=== PATIENT | female | born 1945 | race Caucasian/White ===

== ENCOUNTER 2020-01-29 14:45 | Outpatient (CLI) | payer MEDICARE, BC | END 2020-01-29 23:59 | disposition home or self-care (01) | LOC: LAB.N 14:45 | PROVIDERS: ATTEND Physician Assistant Medical | DX: N30.00 Acute cystitis without hematuria (principal) | CPT/HCPCS: 87086; 87181 ==

== ENCOUNTER 2020-05-28 14:44 | Outpatient (CLI) | payer MEDICARE, BC ==
--- NOTE | 2020-05-29 11:13 | Mammography Report ---
BILATERAL DIGITAL SCREENING MAMMOGRAM 3D/2D: 05/28/2020 CLINICAL: Routine screening. Comparison is made to exams dated: 07/05/2018 mammogram, 06/17/2015 mammogram, and 10/06/2011 mammogram - [facility]. There are scattered fibroglandular elements in both breasts. No significant masses, calcifications, or other findings are seen in either breast. There has been no significant interval change. IMPRESSION: NEGATIVE There is no mammographic evidence of malignancy. A 1 year screening mammogram is recommended. This exam was interpreted at Station ID: [id number]. NOTE: For mammograms, a report in lay terms will be sent to the patient. Approximately 15% of breast malignancies will not be visualized mammographically. In the management of a palpable breast mass, a negative mammogram must not discourage biopsy of a clinically suspicious lesion. Electronically Signed By: Trevor Jones M.D. ar/penrad:05/28/2020 15:37:56 ACR BI-RADS Category 1: Negative 3341F PARENCHYMAL PATTERN: (A) - The breast(s) demonstrate(s) scattered fibroglandular densities. BI-RADS CATEGORY: (1) - 1 RECOMMENDATION: (ANNUAL) - Recommend routine annual screening mammography. [id number] 1 year screening LATERALITY: (B)
== END 2020-05-28 14:45 | disposition home or self-care (01) ==
LOC: DI 14:44
PROVIDERS: ATTEND Registered Nurse
DX: Z12.31 Encounter for screening mammogram for malignant neoplasm of breast (principal)

== ENCOUNTER 2020-05-28 14:48 | Outpatient (CLI) | payer MEDICARE, BC ==
--- NOTE | 2020-05-28 16:24 | DEXA Report ---
PROCEDURE: Dexa Spine and/or Hip INDICATIONS: POSTMENOPAUSAL TECHNIQUE: Dual energy x-ray absorptiometry (DXA) was performed on a [employer] System. Regions measur ed are the AP Spine, femoral neck, and if needed forearm. COMPARISON: None. FINDINGS: Lumbar Spine: Bone Mineral Density 1.174 g/cm/cm,T score -0.1, Left Femoral Neck: Bone Mineral Density 0.835 g/cm/cm, T score -1.4, (T score greater or equal to -1.0: NORMAL) (T score from -1.1 to -2.4: OSTEOPENIA) (T score less than or equal to -2.5 to: OSTEOPOROSIS) Impression: Osteopenia Patients with diagnosis of osteoporosis or osteopenia should have regular bone mineral density assess ment. For those eligible for Medicare, routine testing is allowed once every 2 years. Testing frequ ency can be increased for patients who have rapidly progressing disease or for those who are receivin g medical therapy to restore bone mass. Reviewed by: Germain Herrera MD on 05/28/2020 4:23 PM PDT Approved by: Germain Herrera MD on 05/28/2020 4:23 PM PDT Station ID: [id number]
== END 2020-05-28 14:49 | disposition home or self-care (01) ==
LOC: DI 14:48
PROVIDERS: ATTEND Registered Nurse
DX: M85.88 Other specified disorders of bone density and structure, other site (principal)

== ENCOUNTER 2020-06-11 07:00 | Outpatient (CLI) | payer MEDICARE, BC ==
--- NOTE | 2020-06-11 16:20 | XRAY Report ---
PROCEDURE: Wrist 3 View RT INDICATIONS: FOOSH INJURY, R WRIST TECHNIQUE: 3 views of the wrist were acquired. COMPARISON: None. FINDINGS: Bones: No fractures or dislocations. No suspicious bony lesions. Scaphoid view: No trauma scaphoid is found. Soft tissues: No suspicious soft tissue calcifications. IMPRESSION: Mild osteoarthritic change at the base of the first metacarpal and at the radiocarpal articulations. A small focus of dystrophic calcification is seen near the styloid process of the distal radius. No a cute disease. Reviewed by: Bradley Sanchez MD on 06/11/2020 4:19 PM PDT Approved by: Bradley Sanchez MD on 06/11/2020 4:19 PM PDT Station ID: [id number]
--- NOTE | 2020-06-11 16:21 | XRAY Report ---
PROCEDURE: Finger(s) RT INDICATIONS: FOOSH INJURY, R MIDDLE FINGER TECHNIQUE: AP hand, 3 views of the third finger(s) acquired. COMPARISON: None. FINDINGS: Bones: No fractures or dislocations. No suspicious bony lesions. Soft tissues: No suspicious soft tissue calcifications. 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 No acute trauma found. Reviewed by: Bradley Sanchez MD on 06/11/2020 4:20 PM PDT Approved by: Bradley Sanchez MD on 06/11/2020 4:20 PM PDT Station ID: [id number]
== END 2020-06-11 23:59 | disposition home or self-care (01) ==
LOC: DI.N 07:00
PROVIDERS: ATTEND Physician Assistant Medical
DX: M19.031 Primary osteoarthritis, right wrist (principal); M19.041 Primary osteoarthritis, right hand; M18.11 Unilateral primary osteoarthritis of first carpometacarpal joint, right hand

== ENCOUNTER 2020-08-18 12:58 | Outpatient (CLI) | payer MEDICARE, BC ==
--- NOTE | 2020-08-18 15:21 | XRAY Report ---
PROCEDURE: Ankle 3 View RT INDICATIONS: R ANKLE PX TECHNIQUE: 3 views of the ankle were acquired. COMPARISON: None FINDINGS: Bones: Post surgical changes compatible with ORIF of lateral and medial malleoli fractures. Fracture s of the odontoid anatomic alignment. Mild tibiotalar joint osteoarthritis. Orthopedic hardware is intact. No lucencies identified at the bone hardware interface. No acute fract ures or dislocations. Ankle mortise is normally aligned. No suspicious bony lesions. Soft tissues: No tibiotalar joint effusion. Achilles tendon appears normal. IMPRESSION: 1. Status post ORIF of distal tibia and fibular fractures. 2. No acute fracture. No acute osseous lesion. If there persistent symptoms or continued clinical con cern for pathology, then repeat plain film radiographs (7-10 days) or advanced imaging (CT, MR, bone scan) should be considered for further evaluation. Reviewed by: Makayla Farrell MD, PhD on 08/18/2020 3:19 PM PDT Approved by: Makayla Farrell MD, PhD on 08/18/2020 3:19 PM PDT Station ID: [id number]
--- NOTE | 2020-08-18 16:09 | XRAY Report ---
PROCEDURE: Lumbar Spine 2 View INDICATIONS: LOW BACK PX TECHNIQUE: 3 views of the lumbar spine were acquired. COMPARISON: None. FINDINGS: Bones: 5 [id number]-[id number] vertebrae are present. There is normal bony alignment. No vertebral body compression fractures. No suspicious bony lesions. Moderate dextrocurvature centered at L2. Lower l umbar facet arthropathy. Multilevel degenerative disc space loss. Soft tissues: Overlying bowel gas pattern is normal. No suspicious soft tissue calcifications. IMPRESSION: Scoliotic curvature, degenerative change. No evidence acute bony abnormality of the lumb ar spine. If clinical suspicion and/or symptoms persist, further assessment with repeat plain films or advanced imaging (e.g., CT, MRI, or bone scan) may be helpful for further assessment. Reviewed by: Oc Israel MD on 08/18/2020 4:08 PM PDT Approved by: Oc Israel MD on 08/18/2020 4:08 PM PDT Station ID: [id number]
--- NOTE | 2020-08-18 17:24 | XRAY Report ---
PROCEDURE: Pelvis 1 View INDICATIONS: HIP PX TECHNIQUE: Single AP view of pelvis was obtained COMPARISON: None. FINDINGS: Normal bone mineralization present. Degenerative change lower lumbar spine associated with convex rig ht lumbar scoliosis. No lytic or blastic lesions present. Pelvic phleboliths noted. IMPRESSION: Degenerative changes without fracture or dislocation. Reviewed by: Gonzalez Brady MD on 08/18/2020 4:23 PM AKKATELYN Approved by: Gonzalez Brady MD on 08/18/2020 4:23 PM AKDT Station ID: [id number]
== END 2020-08-18 23:59 | disposition home or self-care (01) ==
LOC: DI.N 12:58
PROVIDERS: ATTEND Physician Assistant Medical
DX: M54.5 Low back pain (principal); M25.571 Pain in right ankle and joints of right foot; S82.841D Displaced bimalleolar fracture of right lower leg, subsequent encounter for closed fracture with routine healing; M25.551 Pain in right hip; M53.3 Sacrococcygeal disorders, not elsewhere classified; M47.816 Spondylosis without myelopathy or radiculopathy, lumbar region

== ENCOUNTER 2020-12-15 09:04 | Outpatient (CLI) | payer MEDICARE, BC ==
--- NOTE | 2020-12-15 15:43 | MRI Report ---
PROCEDURE: Ankle RT W/O INDICATIONS: PAIN IN RIGHT ANKLE AND FOOT JOINTS TECHNIQUE: Noncontrast sagittal T1 spin echo and T2 fast spin echo with fat saturation, axial proton density fas t spin echo and T2 fast spin echo with fat saturation, coronal T1 spin echo and T2 fast spin echo wit h fat saturation through the ankle/hindfoot. COMPARISON: Ankle radiograph dated 08/18/2020. FINDINGS: Image quality: Diagnostic. Susceptibility artifacts from ankle fixation hardware are noted. Bones and joints: Evaluation of ankle osseous structures are limited due to presence of internal fixa tion hardware in distal fibular shaft and medial malleolus. No obvious marrow edema is seen. No defin ite osteochondral injury of talar dome. No dislocation. There is no significant joint effusion. Osteo arthritic changes in midfoot and hindfoot joints are seen. No suspicious intraosseous lesion. Medial structures: The posterior tibialis is mildly thickened at the level of distal talus/talonavic ular joint suggestive of tendinosis. The flexor digitorum longus, and flexor hallucis longus tendons are intact. The posterior tibial neurovascular bundle appears normal within the tarsal tunnel, witho ut extrinsic mass effect. The deltoid ligament and spring ligament complex are grossly intact. Lateral structures: The anterior talofibular, calcaneofibular, and posterior talofibular ligaments a ppear grossly intact. More superiorly, the anterior and posterior tibiofibular ligaments are not vis ualized due to significant susceptibility artifacts. The tibiofibular syndesmosis is normal in width at 2 mm or less. The peroneus longus and brevis tendons demonstrate normal location and morphology. Adjacent bony peroneal tubercle and retrotrochlear prominence are normal in size. The sinus tarsi d emonstrates normal fatty signal, without edema, fibrosis, or cyst formation. Visualized sinus tarsi components (cervical ligament, interosseous talocalcaneal ligament, roots of the inferior extensor re tinaculum) appear normal. Anterior structures: The tibialis anterior, extensor hallucis longus, and extensor digitorum longus tendons appear intact. Posterior and plantar structures: Achilles tendon is intact. Medial and lateral bands of the planta r fascia are of normal thickness. No abductor digiti quinti muscle atrophy to suggest Sanchez neuropa thy. IMPRESSION: 1. Limited study due to significant susceptibility artifacts from ankle fixation hardware. 2. Prior internal fixation of medial malleolus and distal fibular shaft. No gross marrow edema. No ac point lay ira fracture or dislocation. Mild midfoot and hindfoot joint osteoarthritis. No gross osteochondral i njuries of the talar dome. 3. Suggestion of tendinosis involving posterior tibialis tendon at the level of distal talus/talonavi cular joint. Rest of the ankle tendons are grossly intact. 4. Medial and lateral ankle ligaments are grossly intact to the extent visualized. Reviewed by: Edvin Ardon MD on 12/15/2020 3:42 PM [facility] Approved by: Edvin Ardon MD on 12/15/2020 3:42 PM PST Station ID: [id number]
--- NOTE | 2020-12-15 16:25 | MRI Report ---
PROCEDURE: Foot RT W/O INDICATIONS: PAIN IN RIGHT ANKLE AND FOOT JOINTS TECHNIQUE: Noncontrast coronal and sagittal T1 spin echo and STIR; axial T1 spin echo and T2 fast spin echo with fat saturation through the right foot. COMPARISON: None. FINDINGS: Image quality: Excellent. Bones: Mild first MTP joint and first through fifth interphalangeal joint osteoarthritic changes are seen with joint space narrowing and subchondral sclerosis. No marrow edema. No fracture or dislocatio n. No metatarsal stress fractures. No suspicious intraosseous lesion. Soft tissues: The scanned muscles demonstrate normal overall bulk and internal signal. Subcutaneous tissues appear normal as well. No soft tissue masses are present. Extensor and flexor tendons are grossly intact. Lisfranc ligament and joint is intact. IMPRESSION: 1. Mild forefoot and midfoot joint osteoarthritis as above. No marrow edema. No fracture or dislocati on. No evidence of metatarsal stress fractures. 2. Visualized midfoot and forefoot tendons and ligaments are grossly intact. No gross soft tissue abn ormality. Reviewed by: Edvin Ardon MD on 12/15/2020 4:24 PM PST Approved by: Edvin Ardon MD on 12/15/2020 4:24 PM PST Station ID: [id number]
== END 2020-12-15 09:05 | disposition home or self-care (01) ==
LOC: DI 09:04
PROVIDERS: ATTEND Family Medicine
DX: M19.071 Primary osteoarthritis, right ankle and foot (principal)

== ENCOUNTER 2023-04-05 14:46 | Outpatient (CLI) | payer MEDICARE, BC ==
--- NOTE | 2023-04-05 20:22 | XRAY Report ---
PROCEDURE: Cervical Spine 4-5V INDICATIONS: NECK PAIN TECHNIQUE: 7 views of the cervical spine were acquired. COMPARISON: None. FINDINGS: Bones: Vertebral body height and alignment is maintained. Normal bone mineralization and cranioverte bral relationships. No fracture or traumatic malalignment. Disc space narrowing and hypertrophic fac et joints noted in the lower cervical spine Flexion and extension imaging shows no evidence of instability. Oblique images show patent foramina on the left. Evaluation the right foraminal is obscured by patien t positioning Soft tissues: Prevertebral soft tissues are normal in thickness. IMPRESSION: Multilevel degenerative disc disease and arthropathy particularly in the lower cervical spine Reviewed by: Gonzalez Brady MD on 04/05/2023 7:21 PM AKST Approved by: Gonzalez Brady MD on 04/05/2023 7:21 PM AK Station ID: [id number]
== END 2023-04-05 14:47 | disposition home or self-care (01) ==
LOC: DI 14:46
PROVIDERS: ATTEND Internal Medicine
DX: M50.30 Other cervical disc degeneration, unspecified cervical region (principal); M47.812 Spondylosis without myelopathy or radiculopathy, cervical region

== ENCOUNTER 2023-12-02 19:07 | Inpatient (IN) ==
--- NOTE | 2023-12-02 19:41 | ED Physician Documentation ---
PD HPI ABD PAIN Stated complaint Stated Complaint: NOT EATING Chief complaint Chief Complaint: General History obtained from History obtained from: Patient History of Present Illness Timing - onset: How many days ago (3-4) Timing - duration: Days (3-4) Timing - details: Gradual onset and Still present Quality: Cramping, Aching and Pain Location: RUQ, Epigastric and RLQ Radiation: No Chest Meds/Allgy Home Medications Ambulatory Orders Medication Instructions Recorded Confirmed bupropion HCl 300 mg 24 hr tablet, 300 mg PO DAILY 12/02/23 12/02/23 extended release levothyroxine 112 mcg tablet 112 mcg PO DAILY 12/02/23 12/02/23 lisinopril 10 mg tablet 10 mg PO DAILY 12/02/23 12/02/23 Allergies Allergies Allergy/AdvReac Type Severity Reaction Status Date / Time Penicillins Allergy Hives Verified 12/02/23 19:23 [facility] Social History Social History Smoking Status: Former smoker Second hand tobacco smoke exposure: No Do you dip or chew tobacco?: No Do you vape?: No Relationship: Level: Independent Do you feel safe in your home environment?: Yes Suffered physical, verbal, emotional, or financial abuse?: No POLST Patient has POLST: No Exam Constitutional normal general appearance, distress noted (severe) (appears very uncomfortable in pain mid to right abd. ) and average body habitus HENMT normocephalic and oropharynx normal Lymph no lymphadenopathy noted Respiratory breath sounds equal bilaterally and normal respiratory effort Cardiovascular normal heart rate noted and regular rhythm noted Gastrointestinal tender to palpation (severe) and other (She has generalized abdominal tenderness with preponderance in the mid to right abdomen with general percussion and rebound tenderness but marked percussion rebound in the right mid and lower abdomen. Bowel sounds are hypoactive.) Genitourinary no CVA tenderness Extremities normal to palpation Results Vitals Vitals: Vital Signs - 24 hr 12/02/23 19:19 12/02/23 19:36 12/02/23 20:05 Temperature 36.7 C Temperature Source Tympanic Pulse Rate 88 77 78 Respiratory Rate 16 Blood Pressure 126/86 144/77 H 138/72 H O2 Saturation 97 95 O2 Source Room air Room air If not protocol: Oxygen Flow, liters/minute Pain Intensity 9 3 3 12/02/23 20:17 12/02/23 22:06 12/02/23 22:18 Temperature Temperature Source Pulse Rate 75 Respiratory Rate Blood Pressure 142/61 H O2 Saturation 94 O2 Source Nasal cannula If not protocol: Oxygen Flow, liters/minute 1 Pain Intensity 8 1 1 12/02/23 23:26 12/02/23 23:28 12/03/23 00:09 Temperature Temperature Source Pulse Rate 73 Respiratory Rate Blood Pressure 95/56 L O2 Saturation 94 O2 Source Nasal cannula If not protocol: Oxygen Flow, liters/minute Pain Intensity 2 4 12/03/23 01:08 12/03/23 01:08 12/03/23 02:00 Temperature Temperature Source Pulse Rate 68 Respiratory Rate Blood Pressure 106/52 L O2 Saturation 96 O2 Source If not protocol: Oxygen Flow, liters/minute Pain Intensity 3 3 Oxygen O2 Source Nasal cannula Labs Labs: Laboratory Tests 12/02/23 12/02/23 20:05 20:16 WBC 8.6 RBC 4.65 Hgb 15.0 Hct 46.1 MCV 99.1 H MCH 32.3 H MCHC 32.5 RDW 12.3 Plt Count 213 MPV 10.1 Neut # (Auto) 6.1 Lymph # (Auto) 1.6 [place] # (Auto) 0.8 Eos # (Auto) 0.1 Baso # (Auto) 0.0 Absolute Nucleated RBC 0.00 Nucleated RBC % 0.0 Sodium 131 L Potassium 4.5 Chloride 96 L Carbon Dioxide 27 Anion Gap 8.0 BUN 15 Creatinine 1.2 Estimated GFR (MDRD) 43 L Glucose 109 H Calcium 9.5 Magnesium 1.6 L Total Bilirubin 1.1 H AST 20 ALT 13 Alkaline Phosphatase 78 Total Protein 6.9 Albumin 4.1 Globulin 2.8 Albumin/Globulin Ratio 1.5 Lipase 16 Urine Color DARK YELLOW Urine Clarity CLEAR Urine pH 6.0 Ur Specific Hines 1.020 Urine Protein NEGATIVE Urine Glucose (UA) NEGATIVE Urine Ketones NEGATIVE Urine Occult Blood NEGATIVE Urine Nitrite NEGATIVE Urine Bilirubin SMALL H Urine Urobilinogen 0.2 (NORMAL) Ur Leukocyte Esterase NEGATIVE Ur Microscopic Review NOT INDICATED Urine Culture Comments NOT INDICATED PD Medical Decision Making ED course Complexity details: reviewed results, considered differential (Gallbladder is out so not that. Otherwise consider right sided diverticulitis, enteritis, dilated common bile duct, appendicitis. Given generalized peritoneal findings, concern for perforation.), d/w patient and d/w design consultant Reviewed Lab Results: The patient has normal white count. Afebrile. She has normal electrolytes and renal function. Bilirubin is minimally elevated at 1.1 with other LFTs normal. Lipase is normal. She does have marked tenderness so CT scan was done. This showed diffuse wall inflammation of the ileum. There is some stranding noted around the base of the appendix but air-filled and contrast filled otherwise. Given the degree of tenderness along with the ileitis and inability to eat or drink without pain and also some ascites noted around the liver, presuming reactive, I feel the patient is not a candidate for going home and needs to be hospitalized. I talked with the hospitalist to ask for surgery consult due to the stranding at the base of the appendix. I talked with Dr. Whitehead who is on for surgery who said with those findings that it would not be appendicitis given the feeling and air in it. I did call the hospitalist back. It took a little bit of time as initially a different hospitalist called back on the general request. Subsequently placed another request and got the first hospitalist back. He agreed to admit the patient for further care. Discharge Plan Discharge Patient Disposition: 66 [facility] DC/Xfer Condition: Stable Clinical Impression: Ileitis, Abdominal pain, Intractable abdominal pain Interventions: ED Admission Assessment Last Done: 12/03/23 02:58
[2023-12-02 20:12] LABS: BASOPHILS % (AUTO) 0.5 %; EOSINOPHILS # (AUTO) 0.1 10^3/uL (0.0-0.7); EOSINOPHILS % (AUTO) 0.7 %; HCT - HEMATOCRIT 46.1 % (37.0-47.0); LYMPHOCYTES # (AUTO) 1.6 10^3/uL (1.5-3.5); LYMPHOCYTES % (AUTO) 18.9 %; MEAN CORPUSCULAR HEMOGLOBIN 32.3 pg (27.0-31.0); MEAN CORPUSCULAR HGB CONC 32.5 g/dL (32.0-36.0); MEAN CORPUSCULAR VOLUME 99.1 fL (81.0-99.0); MEAN PLATELET VOLUME 10.1 fL (7.9-10.8); MONOCYTES # (AUTO) 0.8 10^3/uL (0.0-1.0); NEUTROPHILS # (AUTO) 6.1 10^3/uL (1.5-6.6); NEUTROPHILS % (AUTO) 70.4 %; PLT - PLATELET COUNT 213 10^3/uL (130-450); RED BLOOD COUNT 4.65 10^6/uL (4.20-5.40); RED CELL DISTRIBUTION WIDTH 12.3 % (12.0-15.0); WHITE BLOOD COUNT 8.6 x10^3/uL (4.8-10.8)
[2023-12-02] MEDS: ONDANSETRON 4 MG/2 ML VIAL IVP STA (20:16)
[2023-12-02] MEDS: HYDROmorphone 1 MG/ML CARPUJECT IVP STA (20:17)
[2023-12-02] MEDS: SODIUM CHLORIDE 0.9% 1,000 ML IV STA ×2 (20:17→23:29)
[2023-12-02 20:24] LABS: BILIRUBIN,URINE SMALL (NEGATIVE); GLUCOSE, URINE (UA) NEGATIVE (NEGATIVE); KETONES,URINE (UA) NEGATIVE (NEGATIVE); LEUKOCYTE ESTERASE, URINE NEGATIVE (NEGATIVE); NITRITE,URINE NEGATIVE (NEGATIVE); OCCULT BLOOD,URINE NEGATIVE (NEGATIVE); PROTEIN,URINE NEGATIVE (NEGATIVE); UROBILINOGEN,URINE 0.2 (NORMAL) E.U./dL (NORMAL)
[2023-12-02 20:27] LABS: MAGNESIUM 1.6 mg/dL (1.7-2.3)
[2023-12-02 20:29] LABS: ALBUMIN 4.1 g/dL (3.2-5.5); ALBUMIN/GLOBULIN RATIO 1.5 (1.0-2.2); BILIRUBIN,TOTAL 1.1 mg/dL (0.2-1.0); CALCIUM 9.5 mg/dL (8.5-10.3); CREATININE 1.2 mg/dL (0.6-1.3); POTASSIUM 4.5 mmol/L (3.5-4.5); TOTAL PROTEIN 6.9 g/dL (6.4-8.9)
[2023-12-02 20:29] LABS: CLARITY,URINE CLEAR (CLEAR)
[2023-12-02] MEDS ORDERED: iohexoL-300 100 ML VIAL ONE (21:23)
[2023-12-02] MEDS: iohexoL-300 100 ML VIAL IVP ONE (22:11)
--- NOTE | 2023-12-02 22:31 | CT Report ---
PROCEDURE: CT Abdomen/Pelvis W INDICATIONS: Abdominal pain, acute, right upper. prior CCY CONTRAST: 100 ML OMNI 300 TECHNIQUE: After the administration of intravenous contrast, a CT scan of the abdomen and pelvis was performed. Images were recorded and evaluated at appropriate window settings. Reformats: coronal and sagittal. F or radiation dose reduction, the following was used: automated exposure control, adjustment of mA and /or kV according to patient size. COMPARISON: None. FINDINGS: Image quality: Diagnostic. Lower chest: Bibasilar subsegmental atelectasis. Liver: No solid mass. Gallbladder: Surgically absent. Biliary tree: No intrahepatic or extrahepatic dilation, accounting for age. Spleen: No splenomegaly. Subcentimeter hypodensities, too small to accurately characterize. Pancreas: No pancreatic ductal dilation. Adrenals: No adrenal nodule. Kidneys and ureters: No hydronephrosis. No renal cystic lesion which requires follow up. No solid mas s. Renal cortical scarring. Stomach, bowel and peritoneum: No gastric or small bowel dilation. Thickened loops of ileum with surr ounding fat stranding. Wall thickening and stranding at the base of the appendix, the remainder of th e appendix is normal in caliber and filled with contrast few foci of gas. Small amount of ascites sarita und the liver and spleen and throughout the abdomen. Diverticulosis without evidence of acute divert iculitis. Lymph nodes: No central or retroperitoneal adenopathy. Vessels: No infrarenal aortic aneurysm. Atherosclerotic vascular calcifications. Patent portal vein. PELVIS Reproductive organs: Unremarkable. Bladder: No abnormal wall thickening, accounting for underdistention. Pelvic lymph nodes: No pelvic adenopathy by size criteria. Bones: No aggressive osseous abnormality. Degenerative changes of the spine. Dextroscoliotic curvatur e. Decreased osseous mineralization. Other: No significant ventral or inguinal hernia. IMPRESSION: 1.Thickened loops of ileum with surrounding fat stranding, concerning for enteritis. 2.Wall thickening and stranding at the base of the appendix. The rest of the appendix is normal in ca liber and filled with contrast and small amounts of gas. 3.Small volume ascites and mild mesenteric edema. Findings may be reactive. Reviewed by: Mack Palma MD on 12/02/2023 10:30 PM PDT Approved by: Mack Palma MD on 12/02/2023 10:30 PM PDT Station ID: [id number]
[2023-12-02] MEDS: PANTOPRAZOLE 40 MG VIAL IVP STA (22:57)
[2023-12-02] MEDS: KETOROLAC 15 MG/ML VIAL IVP STA (23:26)
[2023-12-02] MEDS: HYDROmorphone 0.5 MG/0.5 ML SYRINGE IVP STA (23:28)
[2023-12-02] MEDS: cefTRIAXone 1 GM VIAL IVP STA (23:48)
[2023-12-02] MEDS: metroNIDAZOLE 500 MG/100 ML 500 MG/100 ML BAG IV ONE (23:49)
[2023-12-03] MEDS: ONDANSETRON 4 MG/2 ML VIAL IVP STA (01:27)
[2023-12-03] MEDS ORDERED: SODIUM CHLORIDE FLUSH 0.9% 10 ML SYRINGE IVP PRN (02:23)
[2023-12-03] MEDS ORDERED: MORPHINE 2 MG/ML CARPUJECT IVP PRN (02:23)
--- NOTE | 2023-12-03 02:51 | HISTORY & PHYSICAL EXAMINATION ---
Chief Complaint Chief Complaint Chief Complaint: abdominal pain History of Present Illness History of Present Illness HPI Comment/Other: 78 y old female with PMH HTN, hypothyroidism presented to ER due to abdominal pain, nausea, diarrhea for 2-3 days. Denies fever, MCKEON, chest pain, SOB, symptoms On presentation, pt was afebrile Labs showed normal WBC CT abdomen/ pelvis showed ileitis . As per ER physician ( Dr Garcia), he discussed the case and CT findings with surgeron roofing contractor (Dr Whitehead) who did not think that patient have acute appendicitis and recommedned to treat ileitis/colitis In ER, pt was given iv rocephin and flagyl Pt is admitted due to acute gastroenteritis, abdomninal pain, diarrhea In Er Review of Systems Status of ROS: 10 or more systems reviewed and unremarkable except as noted in history and below PFSH Social History Social History Relationship: Do you feel safe in your home environment?: Yes Suffered physical, verbal, emotional, or financial abuse?: No POLST Patient has POLST: No Meds/Allgy Home Medications Ambulatory Orders Medication Instructions Recorded Confirmed bupropion HCl 300 mg 24 hr tablet, 300 mg PO DAILY 12/02/23 12/02/23 extended release levothyroxine 112 mcg tablet 112 mcg PO DAILY 12/02/23 12/02/23 lisinopril 10 mg tablet 10 mg PO DAILY 12/02/23 12/02/23 Allergies Allergies Allergy/AdvReac Type Severity Reaction Status Date / Time Penicillins Allergy Hives Verified 12/02/23 19:23 Exam Constitutional normal general appearance HENMT normocephalic Eyes PERRL Neck/C-Spine visual inspection normal Lymph no lymphadenopathy noted Chest inspection of chest normal Respiratory breath sounds equal bilaterally Cardiovascular normal heart rate noted Gastrointestinal mild diffuse tenderness Extremities normal to inspection Neurology no focal motor deficit noted Skin no rash Conclusion/Plan Problem List (1) Ileitis: Plan: A: Acute gastroenteritis Abdominal pain Diarrhea HTN Hypothyroidism Plan: Admit to med surg Clear liquid diet Start NS@ 100 cc/h Start levaquin and flagyl iv Zofran iv prn Morphine iv prn Cont home meds DVT prophylaxic: SCD Full code Pt is admitted as inpatient as more than 2 midnight stay is expectred Lab Results 12/02/23 20:05 12/02/23 20:05
[2023-12-03] MEDS ORDERED: metroNIDAZOLE 500 MG/100 ML 500 MG/100 ML BAG IV SCH (03:00)
[2023-12-03] MEDS: levoFLOXacin 750 MG/150 ML 750 MG/150 ML BAG IV SCH (03:12)
[2023-12-03] MEDS: SODIUM CHLORIDE 0.9% 1,000 ML IV SCH (03:12)
[2023-12-03] MEDS: ONDANSETRON 4 MG/2 ML VIAL IVP PRN (04:36)
--- NOTE | 2023-12-03 08:17 | PHARMACY PROGRESS NOTE ---
Best Possible Medication History Admit Date and Time: 12/03/23 [id number] Processed by: Nursing Medications reviewed in ED?: Yes Medication History completed: Yes Secondary Source(s): Pharmacy records and Insurance records [facility] Statement: As the person ultimately responsible for medication therapy, providers are able to order a medication from an existing home medication list in [facility] via the "Reconcile Routine" prior to Confirmation of that medication by java support engineer. Such practice is discouraged except when the physician, in their clinical judgment, deems that a medical need exists for a medication without regard to previous use.
[2023-12-03] MEDS: metroNIDAZOLE 500 MG/100 ML 500 MG/100 ML BAG IV SCH (08:47)
[2023-12-03] MEDS: ENOXAPARIN 40 MG/0.4 ML SYRINGE SUBQ SCH (08:47)
[2023-12-03] MEDS: SODIUM CHLORIDE FLUSH 0.9% 10 ML SYRINGE IVP SCH (08:48)
[2023-12-03 09:00] VITALS: O2SAT 96
--- NOTE | 2023-12-03 09:19 | Discharge Summary ---
Discharge Summary Admit Date: 12/03/23 Discharge Date: 12/03/23 Discharging Provider: Vishnu Rodriguez NP Primary Care Provider: Andrea Fountain Code Status: Attempt Resuscitation DIAGNOSES Admission Diagnoses: Acute gastroenteritis Abdominal pain Diarrhea Hypertension Hypothyroid Discharge Diagnoses with Status of Each Condition: Acute gastroenteritisactive Abdominal painresolved Diarrhearesolved Hypertensionchronic Hypothyroidchronic HPI History of Present Illness: 78-year-old female with history of hypertension, hypothyroidWho presented to the ER with a 2 to 3-day history of nausea, vomiting, abdominal pain, inability to eat. She denied fever, chills. In the ER, workup was significant for ileitis noted on CT scan. On-call surgeon was consulted with the results of CT scan, and she recommended no surgical intervention, but did recommend antibiotics and bowel rest Hospitalist was contacted for admission HOSPITAL COURSE Hospital Course: Patient received IV antibiotics and IVF overnight with improvement in symptoms. Afebrile, no lab abnormalities overnight. Stable for discharge today ALLERGIES Allergies Allergy/AdvReac Type Severity Reaction Status Date / Time Penicillins Allergy Hives Verified 12/02/23 19:23 MEDICATIONS Ambulatory Orders Medication Instructions Recorded Confirmed bupropion HCl 300 mg 24 hr tablet, 300 mg PO DAILY 12/02/23 12/02/23 extended release levothyroxine 112 mcg tablet 112 mcg PO DAILY 12/02/23 12/02/23 lisinopril 10 mg tablet 10 mg PO DAILY 12/02/23 12/02/23 metronidazole 500 mg tablet 500 mg PO TID 7 days #21 tabs 12/03/23 PHYSICAL EXAM AT DISCHARGE General Appearance: positive No acute distress Eyes Bilateral: positive Normal inspection and PERRL ENT: positive ENT inspection nml Neck: positive Nml inspection Respiratory: positive Chest non-tender and Breath sounds nml Cardiovascular: positive Regular rate & rhythm Peripheral Pulses: positive 2+ Abdomen: negative Non-tender (Mild tenderness to palpation) Skin: positive Color nml Extremities: positive Non-tender Neurologic/Psychiatric: positive Oriented x3 LABS 12/02/23 20:05 12/02/23 20:05 DIAGNOSTIC IMAGING Diagnostic Imaging Results: Final report reviewed Diagnostic Imaging Results Comments: CT abdomen pelvis with thickened loops of ileum with surrounding fat stranding, concerning for enteritis. Also with wall thickening and stranding at the base of the appendix, the appendix is normal in caliber and filled with contrast and small amounts of gas. Small volume ascites and mild mesenteric edema SEPSIS Current Stage of Sepsis: Ruled out FOLLOW UP Follow Up: With PCP TIME SPENT Time Spent in Discharge (Minutes): 20 Discharge Plan Discharge Patient Disposition: 01 Home, Self Care Condition: Stable Medically Cleared Date:: 12/03/23 Prescriptions: New metronidazole 500 mg tablet 500 mg PO TID 7 Days Qty: 21 0RF Continued bupropion HCl 300 mg tablet extended release 24 hr 300 mg PO DAILY lisinopril 10 mg tablet 10 mg PO DAILY levothyroxine 112 mcg tablet 112 mcg PO DAILY Activity Restrictions: No Restrictions Diet: Regular Health Concerns: You are a 78-year-old female who presented with history of abdominal pain, Nausea, diarrhea x 2 to 3 days. Your workup in the ER showed ileitis on CT scan. Your case was reviewed by the on-call surgeon, who stated that there is no acute indication for surgery and recommended bowel rest, IV fluid resuscitation, and antibiotics. Today, you are feeling much better, and able to tolerate diet. You have no lab abnormalities suggesting a infectious systemic process. I am going to send you home on an antibiotic called Flagyl, which helps with a lot of infections in the gut. I would encourage you to follow-up with your primary care provider, and come back to the ER if you have any worsening symptoms, fevers, chills. I would recommend a bland diet for the next few days while your stomach recovers Plan of Treatment: [place] diet Antibiotic Follow-up with PCP Print Language: Brazilian Patient Instructions: ED Gastroenteritis Non Infec Stand Alone Forms: PCP List
[2023-12-03] MEDS: CIPROFLOXACIN 250 MG TABLET PO ONE (09:26)
[2023-12-03] MEDS ORDERED: metroNIDAZOLE 250 MG TABLET PO SCH (17:00)
== END 2023-12-03 11:25 | disposition home or self-care (01) | DRG 392 ==
LOC: ED 19:07 → MS2 12-03 02:37
PROVIDERS: ADMIT Internal Medicine; ATTEND Internal Medicine
DX: E03.9 Hypothyroidism, unspecified; Z87.891 Personal history of nicotine dependence; R18.8 Other ascites; K52.9 Noninfective gastroenteritis and colitis, unspecified; Z90.49 Acquired absence of other specified parts of digestive tract; I10 Essential (primary) hypertension